=== PATIENT | male | born 1995 | race Caucasian/White ===

== ENCOUNTER 2019-12-10 09:30 | Emergency (ER) | payer SELFPAY ==
[~2019-12-10] VITALS: Ht 180.3 cm; Wt 65.2 kg
[2019-12-10 09:36] VITALS: BP 145/93
[2019-12-10] MEDS ORDERED: mupirocin 2% ointment 22GM TP STA (10:05)
[2019-12-10] MEDS ORDERED: SULF1TAB49 PO (10:05)
== END 2019-12-10 10:26 | disposition home or self-care (01) ==
LOC: ER 09:31
DX: R51 Headache (principal); M79.631 Pain in right forearm; M79.632 Pain in left forearm; R11.10 Vomiting, unspecified; F17.200 Nicotine dependence, unspecified, uncomplicated; Z79.899 Other long term (current) drug therapy; Z59.0 Homelessness
CPT/HCPCS: 99283